=== PATIENT | female | born 1950 | race Two or more races ===

== ENCOUNTER → 2025-11-16 | Emergency (ER) | payer OTHER ==
[~2025-11-16] VITALS: Ht 160 cm; Wt 66.7 kg
[~2025-11-16] MED LIST: ACETAMINOPHEN 500 MG GEL..CAP PO ONE; ACETAMINOPHEN500 M2 PO; ATORVASTATIN CA20 MG PO; BENZONATATE200 M1 PO; CICLOPIROX6.6 ML TP; DEXAMETHASONE SODIUM PHOSPHATE 4 MG/ML VIAL IM ONE; DEXAMETHASONE SODIUM PHOSPHATE 4 MG/ML VIAL ONE; FAMOTIDINE20 MG PO; FOLINIC-PLUS C1 EACH PO; GILTUSS COUGH-118 M1 PO; KETOROLAC TROMET3 ML OP; LOSARTAN-HCTZ1 EACH PO; MECLIZINE HCL12.5 MG PO; NAPROXEN500 MG PO; OFLOXACIN5 ML OP; OLOPATADINE HC2.5 ML OP; OMEGA-3 ACID ETH1 GM PO; OPTIMAL D3 M350 MCG PO; ORALONE5 GM TOP; PRED FORTE5 ML OTIC; PREDNISOLONE ACE5 ML OTIC; ROSUVASTATIN CA10 MG PO; TIZANIDINE HCL4 MG PO
== END | disposition home or self-care (01) ==
LOC: ER 10:16
DX: M25.511 Pain in right shoulder (principal); Z88.6 Allergy status to analgesic agent; I10 Essential (primary) hypertension; W18.39XA Other fall on same level, initial encounter; Y93.89 Activity, other specified; Y92.89 Other specified places as the place of occurrence of the external cause; E78.49 Other hyperlipidemia
CPT/HCPCS: 73030; 96365; 99283; J1100